=== PATIENT | male | born 1985 ===

== ENCOUNTER 2024-07-19 22:42 | Emergency (ER) | payer SELFPAY ==
[2024-07-19 23:15] LABS: APPEARANCE,URINE CLEAR (CLEAR); BILIRUBIN,URINE NEGATIVE (NEGATIVE); COLOR,URINE YELLOW (YELLOW); GLUCOSE,URINE NEGATIVE (NEGATIVE); KETONES,URINE TRACE mg/dL (NEGATIVE); LEUKOCYTE ESTERASE,URINE NEGATIVE (NEGATIVE); NITRITE,URINE NEGATIVE (NEGATIVE); OCCULT BLOOD,URINE TRACE-INTACT (NEGATIVE); PROTEIN,URINE TRACE mg/dL (NEGATIVE)
[2024-07-19] MEDS: Ketorolac 30 MG/ML SDV IM ONE (23:15)
[2024-07-19 23:21] LABS: BACTERIA,URINE NOT SEEN /HPF (NOT SEEN); CALCIUM OXALATE CRYSTALS,URINE RARE /HPF (NOT SEEN); EPITHELIAL CELLS,URINE NOT SEEN /HPF (NOT SEEN); MUCUS,URINE NOT SEEN /HPF (NOT SEEN); RBC,URINE NOT SEEN /HPF (0-5); WBC,URINE NOT SEEN /HPF (0-5)
[2024-07-20] MEDS: Tamsulosin 0.4 MG Cap.ER PO STA (00:18)
[2024-07-20] MEDS: Tamsulosin 0.4 MG Cap.ER PO ONE (00:19)
[2024-07-20] MEDS: Take Home: Ketorolac 10 MG Tab, 4 Tab Pack PO ONE (00:22)
== END 2024-07-20 00:30 | disposition home or self-care (01) ==
LOC: CC.ED 22:42
DX: N13.2 Hydronephrosis with renal and ureteral calculous obstruction (principal)
CPT/HCPCS: 74176; 81001; 96372; 99284; A9270; J1885